=== PATIENT | male | born 1955 | race Two or more races ===

== ENCOUNTER 2020-12-07 13:37 | Emergency (ER) | payer OTHER ==
[~2020-12-07] VITALS: Ht 167.6 cm; Wt 81.5 kg
[2020-12-07 13:40] VITALS: BP 146/85
--- NOTE | 2020-12-07 14:40 | NUR ---
RN and PA exams completed.
[2020-12-07] MEDS ORDERED: LISI-170 PO (14:41)
--- NOTE | 2020-12-07 14:43 | NUR ---
senior environmental technician at bedside to take pt to radiology.
--- NOTE | 2020-12-07 15:05 | NUR ---
Xray results reviewed and chart marked for recheck.
== END 2020-12-07 15:30 | disposition home or self-care (01) ==
LOC: ED 15:00
DX: S46.012A Strain of muscle(s) and tendon(s) of the rotator cuff of left shoulder, initial encounter (principal); X50.0XXA Overexertion from strenuous movement or load, initial encounter; Y93.89 Activity, other specified; Y92.69 Other specified industrial and construction area as the place of occurrence of the external cause; Y99.0 Civilian activity done for income or pay
CPT/HCPCS: 99283